=== PATIENT | male | born 1945 | race Caucasian/White ===

== ENCOUNTER 2020-01-01 14:43 | Inpatient (IN) ==
[2020-01-01 15:23] LABS: Basophils % 0.2 %; Eosinophils % 0.7 %; Hematocrit 36.8 % (37.5-50.1); Hemoglobin 12.1 g/dL (12.9-16.9); Immature Granulocytes % 0.2 % (0-4); Lymphocytes # 1.3 K/mcL (0.6-4.6); Lymphocytes % 21.3 %; Mean Corpuscular HGB Conc 32.9 g/dL (31.6-35.5); Mean Corpuscular Hemoglobin 30.3 pg (28.0-33.3); Mean Corpuscular Volume 92.2 fL (83.0-100.0); Mean Platelet Volume 9.2 fL (9.4-12.4); Monocytes # 0.6 K/mcL (0.0-1.3); Monocytes % 9.7 %; Neutrophils # 4.2 K/mcL (1.6-8.9); Platelet Count 186 K/mcL (140-400); Red Blood Count 3.99 M/mcL (4.19-5.50); Red Cell Distribution Width 14.2 % (11.5-14.5); Segmented Neutrophils % 67.9 %; White Blood Count 6.1 K/mcL (4.3-11.1)
[2020-01-01 15:28] LABS: INR 1.2; Prothrombin Time 13.2 Seconds (9.4-12.1)
[2020-01-01 15:38] LABS: Troponin I < 0.03 ng/mL (< 0.04)
[2020-01-01 15:39] LABS: Alanine Aminotransferase 7 Units/L (7-52); Albumin 4.3 g/dL (3.5-5.7); Albumin/Globulin Ratio 2.2 (1.1-2.2); Alkaline Phosphatase 65 Units/L (34-104); Aspartate Amino Transferase 14 Units/L (13-39); BUN/Creatinine Ratio 23 (6-26); Bilirubin,Total 0.6 mg/dL (0.3-1.0); Blood Urea Nitrogen 21 mg/dL (8-23); Calcium 9.2 mg/dL (8.6-10.3); Carbon Dioxide 30 mEq/L (23-29); Chloride 105 mEq/L (98-107); Glucose 106 mg/dL (70-105); Magnesium 1.7 mg/dL (1.6-2.6); Osmolality,Calculated 299 (280-300); Potassium 2.9 mEq/L (3.5-5.1); Sodium 143 mEq/L (136-145); Total Protein 6.3 g/dL (6.4-8.9); eGFR For African Americans > 60 (> 60); eGFR For Non-African Americans > 60 (> 60)
[2020-01-01 16:10] LABS: Bilirubin,Urine Negative (Negative); Blood,Urine Negative (Negative); Clarity,Urine Clear (Clear); Color,Urine Yellow (Yellow); Glucose,Urine (UA) Normal (Normal); Ketones,Urine Negative (Negative); Leukocyte Esterase,Urine Negative (Negative); Nitrite,Urine Negative (Negative); PH,Urine 6.5 pH Units (5.0-8.0); Protein,Urine Negative (Neg-Trace); Urobilinogen,Urine Normal (Normal)
[2020-01-01] MEDS ORDERED: Isovue-370 500 ML BOTTLE IVP ONE (16:39)
[2020-01-01] MEDS ORDERED: cefTRIAXone 1,000 MG in 0.9 % Sodium Chloride Mini Bag 100 ML IVPB ONE (17:34)
[2020-01-01] MEDS ORDERED: Ipratropium/Albuterol Neb 3 ML IH ONE (19:09)
[2020-01-01 19:49] LABS: Adenovirus Not Detected (Not Detect); Bordetella Pertussis Not Detected (Not Detect); Chlamydophila pneumoniae Not Detected (Not Detect); Coronavirus 229E Not Detected (Not Detect); Coronavirus HKU1 Not Detected (Not Detect); Coronavirus NL63 Not Detected (Not Detect); Coronavirus OC43 Not Detected (Not Detect); Human Metapneumovirus Not Detected (Not Detect); Human Rhinovirus/Enterovirus Not Detected (Not Detect); Influenza A Subtype 2009 H1 Not Detected (Not Detect); Influenza B Not Detected (Not Detect); Mycoplasma pneumoniae Not Detected (Not Detect); Parainfluenza Virus 1 Not Detected (Not Detect); Parainfluenza Virus 2 Not Detected (Not Detect); Parainfluenza Virus 3 Not Detected (Not Detect); Parainfluenza Virus 4 Not Detected (Not Detect); Respiratory Syncytial Virus Not Detected (Not Detect); SARS-CoV-2 Not Detected (Not Detect)
[2020-01-01] MEDS ORDERED: *HR* HYDROcodone/Acet 7.5/325 mg TABLET PO PRN (20:26)
[2020-01-01] MEDS ORDERED: Naloxone 0.4 MG/ML INJ IVP PRN (20:26)
[2020-01-01] MEDS: QUEtiapine Fumarate 100 MG TABLET PO SCH (22:56)
[2020-01-01] MEDS: *HR* LORazepam 1 MG TABLET PO SCH (22:56)
[2020-01-01] MEDS: lamoTRIgine 100 MG TABLET PO SCH (22:57)
[2020-01-01] MEDS: 0.9 % Sodium Chloride 1,000 ML IVC SCH (22:58)
[2020-01-01] MEDS: Latanoprost 2.5 ML BOTTLE BOTH EYES SCH (22:58)
[2020-01-02] MEDS: Ipratropium/Albuterol Neb 3 ML IH SCH ×5 (00:45→22:06)
[2020-01-02 03:20] LABS: Basophils % 0.3 %; Eosinophils # 0.1 K/mcL (0.0-0.6); Eosinophils % 0.7 %; Hematocrit 33.6 % (37.5-50.1); Immature Granulocytes % 0.3 % (0-4); Lymphocytes # 1.5 K/mcL (0.6-4.6); Lymphocytes % 21.7 %; Mean Corpuscular HGB Conc 32.7 g/dL (31.6-35.5); Mean Corpuscular Hemoglobin 30.6 pg (28.0-33.3); Mean Corpuscular Volume 93.3 fL (83.0-100.0); Mean Platelet Volume 9.3 fL (9.4-12.4); Monocytes # 0.6 K/mcL (0.0-1.3); Monocytes % 9.2 %; Neutrophils # 4.6 K/mcL (1.6-8.9); Platelet Count 164 K/mcL (140-400); Red Cell Distribution Width 14.3 % (11.5-14.5); Segmented Neutrophils % 67.8 %; White Blood Count 6.7 K/mcL (4.3-11.1)
[2020-01-02 03:27] LABS: ABG Base Excess 4 mEq/L (-2 to 3); ABG HCO3 30 mEq/L (21-27); ABG Oxygen Saturation 97 % (95-98); ABG PCO2 54 mmHg (35-45); ABG PH 7.35 pH Units (7.32-7.45); ABG PO2 93 mmHg (85-104); ABG TCO2 32 mEq/L (20-26)
[2020-01-02 03:34] LABS: BUN/Creatinine Ratio 25 (6-26); Blood Urea Nitrogen 16 mg/dL (8-23); Calcium 8.3 mg/dL (8.6-10.3); Carbon Dioxide 31 mEq/L (23-29); Chloride 107 mEq/L (98-107); Glucose 109 mg/dL (70-105); Osmolality,Calculated 300 (280-300); Potassium 2.8 mEq/L (3.5-5.1); Sodium 144 mEq/L (136-145); eGFR For African Americans > 60 (> 60); eGFR For Non-African Americans > 60 (> 60)
[2020-01-02 08:48] LABS: ABG Base Excess 3 mEq/L (-2 to 3); ABG HCO3 28 mEq/L (21-27); ABG Oxygen Saturation 94 % (95-98); ABG PCO2 47 mmHg (35-45); ABG PH 7.39 pH Units (7.32-7.45); ABG PO2 74 mmHg (85-104); ABG TCO2 30 mEq/L (20-26)
[2020-01-02] MEDS: levoFLOXacin 750 MG/150 ML 750 MG/150 ML BAG IVPB SCH (09:40)
[2020-01-02] MEDS: QUEtiapine Fumarate 100 MG TABLET PO SCH (09:54)
[2020-01-02] MEDS: Mirabegron [Myrbetriq] 25 MG PO SCH (09:54)
[2020-01-02] MEDS: Tiotropium 18 MCG inhalation IH SCH (10:11)
[2020-01-02] MEDS: Budesonide/Formoterol 160/4.5 1 PUFF INH IH SCH ×2 (10:13→22:06)
[2020-01-02] MEDS ORDERED: Furosemide 20 MG/2 ML VIAL IVP ONE (11:39)
[2020-01-02] MEDS: lamoTRIgine 100 MG TABLET PO SCH ×2 (12:15→22:24)
[2020-01-02] MEDS: PARoxetine 20 MG TABLET PO SCH (12:15)
[2020-01-02] MEDS: amLODIPine 5 MG TABLET PO SCH (12:15)
[2020-01-02] MEDS: *HR* LORazepam 1 MG TABLET PO SCH (13:38)
[2020-01-02] MEDS ORDERED: *HR* LORazepam 2 MG/ML VIAL IVP PRN (16:09)
[2020-01-02] MEDS: Piperacillin/Tazobactam 3.375 GM in 0.9 % Sodium Chloride Mini Bag 100 ML IVPB SCH (16:44)
[2020-01-02] MEDS: Latanoprost 2.5 ML BOTTLE BOTH EYES SCH (22:26)
[2020-01-02] MEDS: 0.9 % Sodium Chloride 1,000 ML IVC SCH (22:30)
[2020-01-03] MEDS: Piperacillin/Tazobactam 3.375 GM in 0.9 % Sodium Chloride Mini Bag 100 ML IVPB SCH ×3 (00:05→17:31)
[2020-01-03] MEDS: Ipratropium/Albuterol Neb 3 ML IH SCH ×4 (03:59→23:19)
[2020-01-03] MEDS: 0.9 % Sodium Chloride 1,000 ML IVC SCH (05:20)
[2020-01-03 05:38] LABS: Hematocrit 34.6 % (37.5-50.1); Hemoglobin 11.4 g/dL (12.9-16.9); Mean Corpuscular HGB Conc 32.9 g/dL (31.6-35.5); Mean Corpuscular Hemoglobin 30.5 pg (28.0-33.3); Mean Corpuscular Volume 92.5 fL (83.0-100.0); Mean Platelet Volume 9.4 fL (9.4-12.4); Platelet Count 168 K/mcL (140-400); Red Blood Count 3.74 M/mcL (4.19-5.50); Red Cell Distribution Width 13.9 % (11.5-14.5); White Blood Count 4.8 K/mcL (4.3-11.1)
[2020-01-03 05:59] LABS: Alanine Aminotransferase 6 Units/L (7-52); Albumin 3.7 g/dL (3.5-5.7); Albumin/Globulin Ratio 1.9 (1.1-2.2); Alkaline Phosphatase 57 Units/L (34-104); Aspartate Amino Transferase 11 Units/L (13-39); BUN/Creatinine Ratio 19 (6-26); Bilirubin,Total 0.6 mg/dL (0.3-1.0); Blood Urea Nitrogen 14 mg/dL (8-23); Calcium 8.8 mg/dL (8.6-10.3); Carbon Dioxide 31 mEq/L (23-29); Chloride 104 mEq/L (98-107); Glucose 113 mg/dL (70-105); Magnesium 1.6 mg/dL (1.6-2.6); Osmolality,Calculated 297 (280-300); Potassium 3.5 mEq/L (3.5-5.1); Sodium 143 mEq/L (136-145); Total Protein 5.7 g/dL (6.4-8.9); eGFR For African Americans > 60 (> 60); eGFR For Non-African Americans > 60 (> 60)
[2020-01-03] MEDS: Mirabegron [Myrbetriq] 25 MG PO SCH (08:30)
[2020-01-03] MEDS: lamoTRIgine 100 MG TABLET PO SCH ×2 (08:35→20:27)
[2020-01-03] MEDS: amLODIPine 5 MG TABLET PO SCH (08:35)
[2020-01-03] MEDS: PARoxetine 20 MG TABLET PO SCH (08:36)
[2020-01-03] MEDS: Tiotropium 18 MCG inhalation IH SCH (09:32)
[2020-01-03] MEDS: Budesonide/Formoterol 160/4.5 1 PUFF INH IH SCH ×2 (09:32→23:18)
[2020-01-03] MEDS: levoFLOXacin 750 MG/150 ML 750 MG/150 ML BAG IVPB SCH (10:43)
[2020-01-03] MEDS ORDERED: *HR* LORazepam 2 MG/ML VIAL IVP PRN (13:01)
[2020-01-03 13:03] LABS: Prealbumin 11.4 mg/dL (17.0-34.0)
[2020-01-03 13:29] LABS: Procalcitonin < 0.02 ng/mL (0.00-0.15)
[2020-01-03] MEDS: MethylPREDNISolone 40 MG/ML VIAL IVP SCH ×2 (17:31→23:57)
[2020-01-03] MEDS: Latanoprost 2.5 ML BOTTLE BOTH EYES SCH (20:12)
[2020-01-03] MEDS: QUEtiapine Fumarate 100 MG TABLET PO SCH (20:27)
[2020-01-04] MEDS: Piperacillin/Tazobactam 3.375 GM in 0.9 % Sodium Chloride Mini Bag 100 ML IVPB SCH ×2 (00:03→09:08)
[2020-01-04] MEDS: MethylPREDNISolone 40 MG/ML VIAL IVP SCH (05:06)
[2020-01-04] MEDS: Ipratropium/Albuterol Neb 3 ML IH SCH ×2 (05:07→09:58)
[2020-01-04 08:51] LABS: Basophils % 0.2 %; Hematocrit 35.1 % (37.5-50.1); Hemoglobin 11.7 g/dL (12.9-16.9); Immature Granulocytes % 0.4 % (0-4); Lymphocytes # 0.5 K/mcL (0.6-4.6); Lymphocytes % 8.4 %; Mean Corpuscular HGB Conc 33.3 g/dL (31.6-35.5); Mean Corpuscular Hemoglobin 30.2 pg (28.0-33.3); Mean Corpuscular Volume 90.5 fL (83.0-100.0); Mean Platelet Volume 9.1 fL (9.4-12.4); Monocytes # 0.1 K/mcL (0.0-1.3); Monocytes % 1.6 %; Platelet Count 199 K/mcL (140-400); Red Blood Count 3.88 M/mcL (4.19-5.50); Red Cell Distribution Width 13.7 % (11.5-14.5); Segmented Neutrophils % 89.4 %; White Blood Count 5.6 K/mcL (4.3-11.1)
[2020-01-04] MEDS: PARoxetine 20 MG TABLET PO SCH (09:07)
[2020-01-04] MEDS: amLODIPine 5 MG TABLET PO SCH (09:07)
[2020-01-04] MEDS: QUEtiapine Fumarate 100 MG TABLET PO SCH (09:07)
[2020-01-04] MEDS: lamoTRIgine 100 MG TABLET PO SCH (09:08)
[2020-01-04] MEDS: Mirabegron [Myrbetriq] 25 MG PO SCH (09:09)
[2020-01-04 09:10] LABS: Alanine Aminotransferase 6 Units/L (7-52); Albumin/Globulin Ratio 1.9 (1.1-2.2); Alkaline Phosphatase 61 Units/L (34-104); Aspartate Amino Transferase 11 Units/L (13-39); BUN/Creatinine Ratio 18 (6-26); Bilirubin,Total 0.5 mg/dL (0.3-1.0); Blood Urea Nitrogen 13 mg/dL (8-23); Calcium 9.2 mg/dL (8.6-10.3); Carbon Dioxide 28 mEq/L (23-29); Chloride 102 mEq/L (98-107); Globulin 2.1 g/dL (2.4-3.5); Glucose 185 mg/dL (70-105); Osmolality,Calculated 293 (280-300); Potassium 3.5 mEq/L (3.5-5.1); Sodium 139 mEq/L (136-145); Total Protein 6.1 g/dL (6.4-8.9); eGFR For African Americans > 60 (> 60); eGFR For Non-African Americans > 60 (> 60)
[2020-01-04] MEDS: Budesonide/Formoterol 160/4.5 1 PUFF INH IH SCH (09:56)
[2020-01-04] MEDS: Tiotropium 18 MCG inhalation IH SCH (09:56)
[2020-01-04 11:31] VITALS: BP 153/79
== END 2020-01-04 13:41 | disposition home health service (06) | DRG 194 ==
LOC: EMEROOGRE 14:43 → INPGRE 14:43
PROVIDERS: ADMIT Family Medicine; ATTEND Family Medicine

== ENCOUNTER 2020-01-09 11:35 | Inpatient (IN) ==
[2020-01-09 12:43] LABS: Basophils % 0.2 %; Hematocrit 32.4 % (37.5-50.1); Hemoglobin 10.9 g/dL (12.9-16.9); Immature Granulocytes % 0.5 % (0-4); Lymphocytes # 0.8 K/mcL (0.6-4.6); Lymphocytes % 4.7 %; Mean Corpuscular HGB Conc 33.6 g/dL (31.6-35.5); Mean Corpuscular Hemoglobin 30.9 pg (28.0-33.3); Mean Corpuscular Volume 91.8 fL (83.0-100.0); Mean Platelet Volume 9.7 fL (9.4-12.4); Neutrophils # 15.3 K/mcL (1.6-8.9); Platelet Count 197 K/mcL (140-400); Red Blood Count 3.53 M/mcL (4.19-5.50); Red Cell Distribution Width 14.3 % (11.5-14.5); Segmented Neutrophils % 88.6 %; White Blood Count 17.3 K/mcL (4.3-11.1)
[2020-01-09 12:49] LABS: INR 1.5; Prothrombin Time 16.8 Seconds (9.4-12.1)
[2020-01-09 12:50] LABS: VBG HCO3 26 mEq/L (21-27); VBG PCO2 43 mmHg (41-51); VBG PO2 36 mmHg (25-50)
[2020-01-09 13:01] LABS: Alanine Aminotransferase 9 Units/L (7-52); Albumin 3.5 g/dL (3.5-5.7); Albumin/Globulin Ratio 2.1 (1.1-2.2); Alkaline Phosphatase 53 Units/L (34-104); Aspartate Amino Transferase 10 Units/L (13-39); BUN/Creatinine Ratio 23 (6-26); Bilirubin,Total 0.6 mg/dL (0.3-1.0); Blood Urea Nitrogen 23 mg/dL (8-23); Carbon Dioxide 27 mEq/L (23-29); Chloride 104 mEq/L (98-107); Ethanol < 10 mg/dL (Less than 10); Globulin 1.7 g/dL (2.4-3.5); Glucose 117 mg/dL (70-105); Magnesium 1.5 mg/dL (1.6-2.6); Osmolality,Calculated 291 (280-300); Sodium 138 mEq/L (136-145); Total Protein 5.2 g/dL (6.4-8.9); eGFR For African Americans > 60 (> 60); eGFR For Non-African Americans > 60 (> 60)
[2020-01-09] MEDS ORDERED: Piperacillin/Tazobactam 3.375 GM in D5% in Water (Mini-Bag+) 100 ML IVPB ONE (13:42)
[2020-01-09] MEDS ORDERED: *HR* LORazepam 1 MG TABLET PO SCH (15:00)
[2020-01-09] MEDS ORDERED: Tiotropium 18 MCG inhalation IH ONE (15:09)
[2020-01-09] MEDS: Ipratropium/Albuterol Neb 3 ML IH SCH ×2 (15:16→22:01)
[2020-01-09 15:48] LABS: Bilirubin,Urine Negative (Negative); Blood,Urine Negative (Negative); Clarity,Urine Clear (Clear); Color,Urine Yellow (Yellow); Glucose,Urine (UA) Normal (Normal); Ketones,Urine Negative (Negative); Leukocyte Esterase,Urine Negative (Negative); Nitrite,Urine Negative (Negative); PH,Urine 6.5 pH Units (5.0-8.0); Protein,Urine Trace mg/dL (Neg-Trace); Specific Gravity,Urine 1.015 (1.010-1.025); Urobilinogen,Urine Normal (Normal)
[2020-01-09] MEDS ORDERED: QUEtiapine Fumarate 25 MG TABLET PO SCH (21:00)
[2020-01-09] MEDS: lamoTRIgine 100 MG TABLET PO SCH (22:19)
[2020-01-09] MEDS: Latanoprost 2.5 ML BOTTLE BOTH EYES SCH (22:20)
[2020-01-10] MEDS: Piperacillin/Tazobactam 3.375 GM in 0.9 % Sodium Chloride Mini Bag 100 ML IVPB SCH ×4 (01:42→23:21)
[2020-01-10] MEDS: Ipratropium/Albuterol Neb 3 ML IH SCH ×4 (04:03→22:06)
[2020-01-10 05:17] LABS: Basophils % 0.3 %; Eosinophils # 0.1 K/mcL (0.0-0.6); Eosinophils % 0.5 %; Hematocrit 33.9 % (37.5-50.1); Hemoglobin 11.1 g/dL (12.9-16.9); Immature Granulocytes % 0.5 % (0-4); Lymphocytes # 1.6 K/mcL (0.6-4.6); Lymphocytes % 11.1 %; Mean Corpuscular HGB Conc 32.7 g/dL (31.6-35.5); Mean Corpuscular Hemoglobin 30.3 pg (28.0-33.3); Mean Corpuscular Volume 92.6 fL (83.0-100.0); Mean Platelet Volume 9.7 fL (9.4-12.4); Monocytes % 6.9 %; Neutrophils # 11.9 K/mcL (1.6-8.9); Platelet Count 182 K/mcL (140-400); Red Blood Count 3.66 M/mcL (4.19-5.50); Red Cell Distribution Width 14.4 % (11.5-14.5); Segmented Neutrophils % 80.7 %; White Blood Count 14.7 K/mcL (4.3-11.1)
[2020-01-10 05:33] LABS: Alanine Aminotransferase 9 Units/L (7-52); Albumin 3.5 g/dL (3.5-5.7); Albumin/Globulin Ratio 2.1 (1.1-2.2); Alkaline Phosphatase 52 Units/L (34-104); Aspartate Amino Transferase 9 Units/L (13-39); BUN/Creatinine Ratio 28 (6-26); Bilirubin,Total 0.6 mg/dL (0.3-1.0); Blood Urea Nitrogen 19 mg/dL (8-23); Calcium 8.5 mg/dL (8.6-10.3); Carbon Dioxide 31 mEq/L (23-29); Chloride 106 mEq/L (98-107); Globulin 1.7 g/dL (2.4-3.5); Glucose 89 mg/dL (70-105); Osmolality,Calculated 298 (280-300); Potassium 3.1 mEq/L (3.5-5.1); Sodium 143 mEq/L (136-145); Total Protein 5.2 g/dL (6.4-8.9); eGFR For African Americans > 60 (> 60); eGFR For Non-African Americans > 60 (> 60)
[2020-01-10] MEDS: amLODIPine 5 MG TABLET PO SCH (08:23)
[2020-01-10] MEDS: PARoxetine 20 MG TABLET PO SCH (08:23)
[2020-01-10] MEDS: lamoTRIgine 100 MG TABLET PO SCH ×2 (08:23→20:42)
[2020-01-10] MEDS: (Mirabegron [Myrbetriq] 25 MG) PO SCH (08:30)
[2020-01-10] MEDS: Tiotropium 18 MCG inhalation IH SCH (09:15)
[2020-01-10] MEDS: Budesonide/Formoterol 160/4.5 1 PUFF INH IH SCH ×2 (09:17→22:07)
[2020-01-10] MEDS: *HR* LORazepam 1 MG TABLET PO PRN (15:21)
[2020-01-10] MEDS: Nicotine 14 MG PATCH.TD24 TD SCH (15:27)
[2020-01-10] MEDS ORDERED: Acetaminophen 325 MG TABLET PO PRN (20:03)
[2020-01-10] MEDS: QUEtiapine Fumarate 25 MG TABLET PO SCH (20:41)
[2020-01-10] MEDS: Latanoprost 2.5 ML BOTTLE BOTH EYES SCH (20:44)
[2020-01-11] MEDS: Ipratropium/Albuterol Neb 3 ML IH SCH ×4 (03:59→21:44)
[2020-01-11] MEDS: Piperacillin/Tazobactam 3.375 GM in 0.9 % Sodium Chloride Mini Bag 100 ML IVPB SCH ×3 (09:16→23:41)
[2020-01-11] MEDS: Nicotine 14 MG PATCH.TD24 TD SCH (09:17)
[2020-01-11] MEDS: QUEtiapine Fumarate 25 MG TABLET PO SCH ×2 (09:18→19:55)
[2020-01-11] MEDS: amLODIPine 5 MG TABLET PO SCH (09:18)
[2020-01-11] MEDS: PARoxetine 20 MG TABLET PO SCH (09:18)
[2020-01-11] MEDS: lamoTRIgine 100 MG TABLET PO SCH ×2 (09:18→19:56)
[2020-01-11] MEDS: (Mirabegron [Myrbetriq] 25 MG) PO SCH (09:19)
[2020-01-11] MEDS: Budesonide/Formoterol 160/4.5 1 PUFF INH IH SCH ×2 (10:50→21:47)
[2020-01-11] MEDS: Tiotropium 18 MCG inhalation IH SCH (10:50)
[2020-01-11] MEDS: Latanoprost 2.5 ML BOTTLE BOTH EYES SCH (19:59)
[2020-01-11] MEDS: *HR* LORazepam 1 MG TABLET PO PRN (23:41)
[2020-01-12] MEDS: Ipratropium/Albuterol Neb 3 ML IH SCH ×4 (04:11→22:50)
[2020-01-12 05:32] LABS: Hematocrit 31.2 % (37.5-50.1); Hemoglobin 10.3 g/dL (12.9-16.9); Mean Corpuscular Hemoglobin 30.2 pg (28.0-33.3); Mean Corpuscular Volume 91.5 fL (83.0-100.0); Mean Platelet Volume 9.9 fL (9.4-12.4); Platelet Count 206 K/mcL (140-400); Red Blood Count 3.41 M/mcL (4.19-5.50); Red Cell Distribution Width 14.4 % (11.5-14.5); White Blood Count 8.7 K/mcL (4.3-11.1)
[2020-01-12 05:47] LABS: BUN/Creatinine Ratio 13 (6-26); Blood Urea Nitrogen 9 mg/dL (8-23); Calcium 8.5 mg/dL (8.6-10.3); Carbon Dioxide 27 mEq/L (23-29); Chloride 103 mEq/L (98-107); Glucose 116 mg/dL (70-105); Magnesium 1.8 mg/dL (1.6-2.6); Osmolality,Calculated 286 (280-300); Potassium 3.5 mEq/L (3.5-5.1); Sodium 138 mEq/L (136-145); eGFR For African Americans > 60 (> 60); eGFR For Non-African Americans > 60 (> 60)
[2020-01-12] MEDS: Piperacillin/Tazobactam 3.375 GM in 0.9 % Sodium Chloride Mini Bag 100 ML IVPB SCH ×2 (08:42→16:24)
[2020-01-12] MEDS: PARoxetine 20 MG TABLET PO SCH (08:43)
[2020-01-12] MEDS: QUEtiapine Fumarate 25 MG TABLET PO SCH ×2 (08:43→22:01)
[2020-01-12] MEDS: lamoTRIgine 100 MG TABLET PO SCH ×2 (08:43→22:00)
[2020-01-12] MEDS: amLODIPine 5 MG TABLET PO SCH (08:43)
[2020-01-12] MEDS: Nicotine 14 MG PATCH.TD24 TD SCH (08:44)
[2020-01-12] MEDS: Tiotropium 18 MCG inhalation IH SCH (09:41)
[2020-01-12] MEDS: Budesonide/Formoterol 160/4.5 1 PUFF INH IH SCH ×2 (09:42→22:49)
[2020-01-12] MEDS: (Mirabegron [Myrbetriq] 25 MG) PO SCH (10:04)
[2020-01-12] MEDS: *HR* HYDROcodone/Acet 7.5/325 mg TABLET PO PRN ×2 (10:32→22:00)
[2020-01-12] MEDS: Latanoprost 2.5 ML BOTTLE BOTH EYES SCH (22:03)
[2020-01-13] MEDS: Piperacillin/Tazobactam 3.375 GM in 0.9 % Sodium Chloride Mini Bag 100 ML IVPB SCH ×2 (00:14→08:38)
[2020-01-13] MEDS: *HR* HYDROcodone/Acet 7.5/325 mg TABLET PO PRN (04:10)
[2020-01-13] MEDS: Ipratropium/Albuterol Neb 3 ML IH SCH ×2 (04:11→09:01)
[2020-01-13 07:42] VITALS: BP 131/79
[2020-01-13] MEDS: lamoTRIgine 100 MG TABLET PO SCH (08:39)
[2020-01-13] MEDS: PARoxetine 20 MG TABLET PO SCH (08:39)
[2020-01-13] MEDS: amLODIPine 5 MG TABLET PO SCH (08:39)
[2020-01-13] MEDS: Nicotine 14 MG PATCH.TD24 TD SCH (08:39)
[2020-01-13] MEDS: QUEtiapine Fumarate 25 MG TABLET PO SCH (08:39)
[2020-01-13] MEDS: (Mirabegron [Myrbetriq] 25 MG) PO SCH (08:40)
[2020-01-13] MEDS: Tiotropium 18 MCG inhalation IH SCH (09:01)
[2020-01-13] MEDS: Budesonide/Formoterol 160/4.5 1 PUFF INH IH SCH (09:01)
[2020-01-13] MEDS: *HR* LORazepam 1 MG TABLET PO PRN (11:32)
== END 2020-01-13 11:55 | DRG 193 ==
LOC: INPGRE 11:35 → EMEROOGRE 11:35 → INPGRE 14:06
PROVIDERS: ADMIT Family Medicine; ATTEND Family Medicine